=== PATIENT | male | born 1950 | race Caucasian/White ===

== ENCOUNTER 2019-11-06 08:52 | Outpatient (CLI) | payer MEDICARE, OTHER ==
--- NOTE | 2019-11-06 11:35 | ULT ---
ULTRASOUND ABDOMEN: HISTORY: Right upper quadrant pain. Left-sided abdominal pain. FINDINGS: The liver demonstrates increased echogenicity concerning for fatty infiltration without focal mass or intrahepatic ductal dilatation. No gallstones, gallbladder wall thickening, or pericholecystic flui d is seen. The right kidney is normal. The visualized portions of the pancreas, aorta, and IVC are normal. There is a 1.9 cm hypoechoic mass in the left kidney which does not meet all criteria for a simple cyst. Multiple echogenic foci consistent with granulomas are seen in the spleen which measure 9.6 cm in length. No free fluid is seen. IMPRESSION: 1. Fatty liver. 2. No evidence of cholelithiasis. 3. Splenic granulomas. 4. Indeterminate left renal mass. CT scan of the abdomen and pelvis using the renal mass protocol i s recommended (with and without IV contrast). POS: [facility]
== END 2019-11-06 08:53 | disposition home or self-care (01) ==
LOC: SCSULT 08:52
PROVIDERS: ATTEND Internal Medicine Gastroenterology
DX: R10.11 Right upper quadrant pain (principal); K76.0 Fatty (change of) liver, not elsewhere classified; D73.89 Other diseases of spleen; N28.89 Other specified disorders of kidney and ureter
CPT/HCPCS: 93975

== ENCOUNTER 2019-11-12 08:05 | Outpatient (CLI) | payer MEDICARE, OTHER ==
--- NOTE | 2019-11-12 09:21 | CT ---
CT of the abdomen with and without contrast INDICATION: Suspicion for left-sided renal mass found on a prior abdominal ultrasound dated November 06, 2019; right-sided abdominal pain on and off for the past 2 years COMPARISON: Abdominal ultrasound dated November 06, 2019 TECHNIQUE: Axial noncontrast CT the abdomen, nephrographic phase axial CT the abdomen and delayed pha se axial CT of the abdomen were obtained. Sagittal and coronal reformats were constructed from the delayed phase imaging series. FINDINGS: Kidneys: There is an 8 mm hypodense lesion involving the anterior cortex of the left renal interpolar region that likely does not correspond to the ultrasound abnormality. This lesion is below 1 cm in size and difficult to fully characterize on the pre and postcontrast imaging; however, a small cyst i s favored. There is a column of Axel involving the left mid kidney likely corresponding to the hypoechoic lesion seen within the left renal sinus on the comparison ultrasound exam. No suspicious s olid renal lesion is seen within the left kidney. There is a tiny hypodensity involving the medial cortex of the right renal interpolar region on image 41 of series 3 measuring approximately 1 cm in s ize. There is suggestion of some mild internal enhancement of this lesion; however, this lesion is small and abuts the renal sinus and may reflect a mildly complex cyst. No definite solid renal lesion is seen involving the right kidney. No gross urothelial lesion is identified on the delayed phase imaging. Liver: No suspicious abnormality. Gallbladder: Normal. Pancreas: Normal. Adrenal glands: Normal. Spleen: Spleen is upper limits of normal in size measuring 12.4 cm with numerous splenic granuloma. Retroperitoneum: No enlarged lymph nodes. Vasculature: There are mild vascular calcifications seen involving the visualized vasculature. Visualized small and large bowel: There are a few scattered colonic diverticula without evidence of a ctive reticulitis. The small bowel is of normal caliber. There is a small hiatal hernia. Soft tissues: There is a fat-containing umbilical hernia. Osseous structures: No acute osseous abnormality. IMPRESSION: 1. The abnormality seen on the comparison abdominal ultrasound likely corresponds to a column of Omer in involving the left mid kidney which is a normal variant. There is a very tiny 8 mm hypodense lesion involving the anterior cortex of the left renal interpolar region that is difficult to fully c haracterize due to its size, but likely is reflective of a tiny cyst. 2. There is a 1 cm hypodense lesion involving the medial cortex of the right renal interpolar region that on the postcontrast images has suggestion of some mild internal enhancement. Some of this may be related to volume averaging due to the size of the lesion with the adjacent enhancing renal parenc hyma. The lesion is also adjacent to the renal sinus, which on the delayed phase images, induces some spray artifact adjacent to the lesion due to the concentration of contrast within the renal mari ecting systems. Since this lesion is indeterminate, a follow-up CT the abdomen utilizing renal mass protocol in 6-12 months is recommended to document stability. I favor this reflecting a mildly comple x cyst. 3. Findings of prior granulomatous disease. 4. Small fat-containing umbilical hernia. 5. Colonic diverticulosis. 6. Small hiatal hernia. Transcribed Date/Time: 11/12/2019 9:28 AM
== END 2019-11-12 08:06 | disposition home or self-care (01) ==
LOC: SCSCT 08:05
PROVIDERS: ATTEND Internal Medicine Gastroenterology
DX: N28.89 Other specified disorders of kidney and ureter (principal); N28.9 Disorder of kidney and ureter, unspecified; K44.9 Diaphragmatic hernia without obstruction or gangrene; K57.30 Diverticulosis of large intestine without perforation or abscess without bleeding; K42.9 Umbilical hernia without obstruction or gangrene
CPT/HCPCS: 74178